=== PATIENT | male | born 1950 | race Caucasian/White ===

== ENCOUNTER 2022-01-01 09:40 | Observation (INO) | payer OTHER, SELFPAY ==
[2022-01-01] VITALS (44 sets, daily range): BP systolic 96–129; BP diastolic 52–80; PULSE 68–107; RESP 14–26; TEMP 35.4–36.8; O2SAT 92–100; BMI 25.1
--- NOTE | 2022-01-01 09:56 | ECG_ITS ---
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 Measurements Intervals [place] Rate: 82 P: 37 ID: [id number] QRS: -23 QRSD: 93 T: -38 QT: 399 QTc: 467 Interpretive Statements SINUS RHYTHM POSSIBLE LEFT ATRIAL ENLARGEMENT [-0.1mV P-WAVE IN V1/V2] ANTEROSEPTAL MYOCARDIAL INFARCTION , PROBABLY RECENT [40+ ms Q WAVE IN V1-V4] ACUTE LA No previous ECG available for comparison Electronically Signed On 01-01-2022 16:34:48 CDT by Cortney Deutsch M.D. [id number]
[2022-01-01 10:01] LABS: Basophils % 0.2 %; Hematocrit 43.8 % (42.0-52.0); Hemoglobin 14.6 g/dL (11.7-16.6); Lymphocytes # 0.7 10^3/uL (0.8-4.8); Lymphocytes % 4.6 %; Mean Corpuscular HGB Conc 33.3 g/dL (30.0-36.0); Mean Corpuscular Hemoglobin 31.3 pg (28.0-34.0); Mean Corpuscular Volume 93.8 fl (80-94); Mean Platelet Volume 11.1 fL (7.4-10.4); Monocytes % 6.9 %; Neutrophils # 13.13 10^3/uL (1.8-7.7); Neutrophils % 87.7 %; Nucleated Red Blood Cells % 0 %; Platelet Count 209 10^3/cmm (130-400); Red Blood Count 4.67 10^6/uL (4.1-5.3); Red Cell Distribution Width 13.2 % (12.1-15.1)
--- NOTE | 2022-01-01 10:02 | ED_ITS ---
HPI - General Adult General: Chief complaint: General Medical Stated complaint: hypothermia Time Seen by Provider: 01/01/22 09:46 History of Present Illness: 71-year-old male presenting today with concerns of hypothermia. Patient notes he was out in the [place] walking. He likes to walk with his dogs. He was feeling well and otherwise normal. He notes he fell asleep in the [place]. Woke up extremely cold. Somebody had called EMS on him which were seeking him in the [place]. And found him. Patient with a p.o. temperature in the 80s. However rectal temperature of 95. He denies chest pain or shortness of breath. He notes a history of prior stroke. For which she has residual left facial droop. He otherwise denies a full review of systems. Noting he feels better since being warmed. Review of Systems General: Reports: 10 or more systems reviewed and unremarkable except in HPI and below Physical Exam Const: COMMON NORMALS: no acute distress, patient oriented x3 and alert G ENERAL APPEARANCE: cooperative ORIENTATION/CONSCIOUSNESS: Yes awake, Yes oriented to person, Yes oriented to place and Yes oriented to time HENMT: COMMON NORMALS: normocephalic, atraumatic, external ears normal, Normal external nose present and moist oral mucous membranes HEAD & SCALP: normal to inspection, normocephalic and atraumatic NOSE: Normal external nose present GENERAL EAR: hearing grossly impaired EXTERNAL EAR: Yes external ears normal Eye: COMMON NORMALS: Equal, round and reactive pupils present, EOMs intact bilaterally, conjunctivae normal and no scleral icterus GENERAL EYE: appearance normal, both eyes and all related structures EYELID: eyelids normal CONJUNCTIVA: Yes conjunctivae normal SCLERA: sclerae normal PUPIL: Yes Equal, round and reactive pupils present Neck/C-Spine: COMMON NORMALS: full ROM, supple and no JVD GENERAL: Yes normal visual inspection Lymph: LYMPHATIC: no lymphadenopathy noted and no lymphedema noted Chest: COMMONS NORMALS: normal inspection of the chest Resp: COMMON NORMALS: normal respiratory effort, No retractions and No use of accessory muscles Cardio: COMMON NORMALS: no JVD, regular rate and regular rhythm RATE: regular rate RHYTHM: regular rhythm GI: COMMON NORMALS: Normal to inspection, nondistended, normoactive bowel sounds present : COMMON NORMALS: Yes no CVA tenderness BLADDER/KIDNEY EXAM: Yes no CVA tenderness Back/Pelvis: COMMON NORMALS: no CVA tenderness and thoracic and lumbar spine normal to inspection Extremity: COMMON NORMALS: normal to inspection, full ROM and capillary refill normal GENERAL: Yes normal exam except as noted Neuro: COMMON NORMALS: patient oriented x3, CN's II-XII intact bilaterally, moves all extremities, no focal motor deficits, no sensory deficits noted and gait normal SENSORIUM/ORIENTATION: Yes alert, Yes oriented to person, Yes oriented to place and Yes oriented to time Psych: COMMON NORMALS: mental status grossly normal, Normal thought process present, cooperative and normal affect THOUGHT PROCESS: Normal thought proce ss present Skin: COMMON NORMALS: no rashes or lesions noted and no wounds GENERAL SKIN EXAM: no rashes or lesions noted Course Vital Signs: Vital signs: Vital Signs Temperature 96.5 F L 01/01/22 10:41 Pulse Rate 86 01/01/22 10:50 Respiratory Rate 14 01/01/22 10:50 Blood Pressure 122/62 01/01/22 10:50 Pulse Oximetry 100 01/01/22 10:50 Oxygen Delivery Me thod 01/01/22 09:46 Oxygen Flow Rate 3 01/01/22 09:46 [facility] - General Adult Medical Decision Making 71-year-old male presenting today with concerns for hypothermia. Rectal temperature of 95.5. Patient rewarmed to 98.6. Labs with slight leukocytosis otherwise within normal limits. Vitals within normal limits. CMP with AST to ALT ratio suggestive of alcoholism. CK is significantly elevated. Also with renal insufficiency. Will admit to the hospital for likely rhabdomyolysis from shivering. Patient bolused normal saline. Hospitalist requesting drug screen as well as blood alcohol. Patient admitted in stable condition. Lab Data : 01/01/22 09:50 01/01/22 09:50 Laboratory Results WBC 15.0 10^3/uL (4.0-10.0) H 01/01/22 09:50 RBC 4.67 10^6/uL (4.1-5.3) 01/01/22 09:50 Hgb 14.6 g/dL (11.7-16.6) 01/01/22 09:50 Hct 43.8 % (42.0-52.0) 01/01/22 09:50 MCV 93.8 fl (80-94) 01/01/22 09:50 MCH 31.3 pg (28.0-34.0) 01/01/22 09:50 MCHC 33.3 g/dL (30.0-36.0) 01/01/22 09:50 RDW 13.2 % (12.1-15.1) 01/01/22 09:50 Plt Count 209 10^3/cmm (130-400) 01/01/22 09:50 MPV 11.1 fL (7.4-10.4) H 01/01/22 09:50 Neut % (Auto) 87.7 % 01/01/22 09:50 Lymph % (Auto) 4.6 % 01/01/22 09:50 Holt % (Auto) 6.9 % 01/01/22 09:50 Eos % (Auto) 0.0 % 01/01/22 09:50 Baso % (Auto) 0.2 % 01/01/22 09:50 Neut # (Auto) 13.13 10^3/uL (1.8-7.7) H 01/01/22 09:50 Lymph # (Auto) 0.7 10^3/uL (0.8-4.8) L 01/01/22 09:50 Holt # (Auto) 1.0 10^3/uL (0.2-0.9) H 01/01/22 09:50 Eos # (Auto) 0.0 10^3/uL (0.0-0.8) 01/01/22 09:50 Baso # (Auto) 0.0 10^3/uL (0.0-0.1) 01/01/22 09:50 Nucleated RBC % (auto) 0 % 01/01/22 09:50 Nucleated RBCs # 0.0 /100WBC 01/01/22 09:50 Sodium 136 mmol/L (136-145) 01/01/22 09:50 Potassium 4.6 mmol/L (3.5-5.1) 01/01/22 09:50 Chloride 100 mmol/L (98-107) 01/01/22 09:50 Carbon Dioxide 21 mmol/L (22-29) L 01/01/22 09:50 Anion Gap 19.6 (5-19) H 01/01/22 09:50 BUN 54 mg/dL (8-23) H 01/01/22 09:50 Creatinine 1.3 mg/dL (0.7-1.2) H 01/01/22 09:50 GFR Calculation Not Reportable 01/01/22 09:50 Glucose 88 mg/dL (65-115) 01/01/22 09:50 Calculated Osmolality 296 mOsm/kg (285-295) H 01/01/22 09:50 Calcium 9.0 mg/dL (8.5-10.5) 01/01/22 09:50 Total Bilirubin 1.6 mg/dL (0.15-1.2) H 01/01/22 09:50 AST 170 U/L (0-40) H 01/01/22 09:50 ALT 63 U/L (0-41) H 01/01/22 09:50 Alkaline Phosphatase 65 U/L (40-130) 01/01/22 09:50 Creatine Kinase 6487 U/L (39-308) H* 01/01/22 09:50 Total Protein 7.4 g/dL (6.6-8.7) 01/01/22 09:50 Albumin 4.2 g/dL (3.5-5.2) 01/01/22 09:50 Globulin 3.2 g/dL (1.3-4.6) 01/01/22 09:50 Discharge Plan Discharge Patient Disposition: Admitted As Inpatient Clinical Impression: Hypothermia, Rhabdomyolysis, Acute kidney injury, Hepatic insufficiency Condition: Stable Prescriptions: No Action atorvastatin 80 mg Tablet 80 mg PO QPM carvedilol 6.25 mg Tablet 3.125 mg PO BID Aspir-81 81 mg Tablet,Delayed Release (Dr/Ec) 81 mg PO DAILY spironolactone 25 mg Tablet 12.5 mg PO DAILY warfarin 2 mg Tablet See Rx Instructions .ROUTE .COMPLEX Rx Instructions: take 3 tabs (6mg) po on tuesday and tuesday and take 2 tabs (4mg) all other days or as directed losartan 25 mg Tablet 12.5 mg PO QPM Vitamin D2 1,250 mcg (50,000 unit) Capsule 50,000 unit PO Q7D Rx Instructions: on sat for 4 weeks Referrals: Rema Moreno MD [Primary Care Provider] - Patient Instructions: Opioid Safety, Pain Management Coding Level of Care Code ED Commercial Loan Underwriter for Chg Fwd Exam Comprehensive
[2022-01-01 10:38] LABS: Alanine Aminotransferase 63 U/L (0-41); Albumin Level 4.2 g/dL (3.5-5.2); Alkaline Phosphatase 65 U/L (40-130); Anion Gap 19.6 (5-19); Aspartate Amino Transferase 170 U/L (0-40); Blood Urea Nitrogen 54 mg/dL (8-23); Carbon Dioxide 21 mmol/L (22-29); Chloride 100 mmol/L (98-107); Globulin 3.2 g/dL (1.3-4.6); Glucose 88 mg/dL (65-115); Osmolality Calculated 296 mOsm/kg (285-295); Potassium 4.6 mmol/L (3.5-5.1); Sodium 136 mmol/L (136-145); Total Bilirubin 1.6 mg/dL (0.15-1.2); Total Protein 7.4 g/dL (6.6-8.7)
[2022-01-01 10:55] LABS: Creatine Phosphokinase 6487 U/L (39-308)
--- NOTE | 2022-01-01 11:11 | PC.PHAR ---
pt and pts family unable to verify medications-medications entered are meds that are on the [place]
[2022-01-01] MEDS: sodium chloride 0.9% 1,000 ML 999 ML IV (11:12)
[2022-01-01 11:42] LABS: Alcohol Level < 10 mg/dL (0-10)
--- NOTE | 2022-01-01 12:12 | PM.HP ---
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 Patient was seen on [facility], patient is stating that he woke up around 5:30 AM before done he was very thirsty, there were 20 friends at his house and they were all waiting To go to the bathroom so he decided to go out and void urine in the [place], then a cold breeze came and he felt extremely comfortable and then slept for a while, and then he started experiencing chest tightness which was constant until he was seen in the ER, when I asked him what made it better he said water, patient also made statement like when he woke up there was a water stream running through the kitchen but he decided to drink water from the tap. And then he started complaining that his family members were sleeping beside him but they did not help him to get a bottle of water, patient is also stating that he found a friend in the [place] When I talked to the family daughter stating that last time he was so normal was on Tuesday when she visited him, he lives alone in his own home, he is very independent, he loves to soriano and golf with his dogs, on Tuesday his friend checked on him he was not at home his front door was unlocked and all the lights were on, his phone was inside which he put on charging, he was not at home, on Tuesday family reported to the police department that he went missing, and then the whole family started searching for him in the [facility], he was recovered from the [facility] by a marketing communications coordinator on Tuesday morning, patient was very talkative he was telling all kind of different stories he kept saying he is very thirsty and dehydrated In the ER he has been diagnosed with delusional disorder secondary to dehydration he also has rhabdomyolysis, ASHELY abnormal transaminases I have requested CT head he did not have any stroke related changes his strength is good he is awake alert oriented to time place and person Tangential thoughts According to the family he is 90% back to baseline but he is making some statements which are not true Patient is stating that he he gets tick bites all the time Review of Systems Const: Denies: fever(s) Eyes: Denies: change in vision ENMT: Denies: throat pain Card: Reports: chest pain Resp: Denies: dyspnea GI: Denies: abdominal pain : Denies: flank pain Musc: Denies: neck pain Skin/Breast: Denies: rash Neuro: Reports: behavioral changes; Denies: headache(s) Psych: Denies: anxiety Endo: Denies: polyuria William/Lymph: Denies: easy bruising All/Imm: Denies: urticaria Medications/Allergies Home Medications Medication Instructions Recorded Confirmed Last Taken Type aspirin 81 mg tablet,delayed 81 mg PO DAILY 01/01/22 01/01/22 Unknown History release atorvastatin 80 mg tablet 80 mg PO QPM 01/01/22 01/01/22 Unknown History carvedilol 6.25 mg tablet 3.125 mg PO BID 01/01/22 01/01/22 Unknown History ergocalciferol (vitamin D2) 1,250 50,000 unit PO Q7D 01/01/22 01/01/22 Unknown History mcg (50,000 unit) capsule (Vitamin D2) losartan 25 mg tablet 12.5 mg PO QPM 01/01/22 01/01/22 Unknown History spironolactone 25 mg tablet 12.5 mg PO DAILY 01/01/22 01/01/22 Unknown History warfarin 2 mg tablet See Rx Instructions .Route .COMPLEX 01/01/22 01/01/22 Unknown History Allergies Allergy/AdvReac Type Severity Reaction Status Date / Time No Known Allergies Allergy Verified 01/01/22 11:11 PFSH Acute PFSH: Medical History (Updated 01/01/22 @ 17:23 by Grant Fink MD) CVA (cerebral vascular accident) In July he was at [facility] status post embolectomy as per the family because posterior circulation Family History (Updated 01/01/22 @ 17:24 by Grant Fink MD) Other Stroke Social History (Updated 01/01/22 @ 17:24 by Grant Fink MD) Smoking and tobacco status: former smoker Alcohol intake: current Alcohol intake frequency: holidays/special occasions only Alcohol type: beer Substance/Drug Use: never Lives independently: Yes Housing: House Vitals/I&O/Wt Last Vital Signs Temp 96.5 F L 01/01/22 10:41 Pulse 89 01/01/22 12:00 Resp 21 H 01/01/22 12:00 BP 108/62 01/01/22 12:00 Pulse Ox 98 01/01/22 12:00 O2 Del Method 01/01/22 09:46 O2 Flow Rate 3 01/01/22 09:46 Physical Exam Narrative: NIH 0 Awake and alert Skin is flushed Signs of dehydration Awake and alert S1, S2 sinus tachycardia Hemodynamically stable Currently on room air Family at the bedside Nonfocal neuro exam Pleasant and cooperative Attention span is good he does have tangential thoughts Data : 01/01/22 09:50 01/01/22 09:50 A&P Assessment and plan (1) Hypothermia: (2) Rhabdomyolysis: (3) Acute kidney injury: (4) Hepatic insufficiency: (5) Delusional disorder: Plan Acute delusional disorder Most likely related to dehydration Check drug screen Check CT head without contrast He is afebrile Look for tick bites I will start him on ceftriaxone Check UA Suspicion for meningoencephalitis is low ASHELY related to dehydration anticipating treatment with IV fluid hydration Concern for tick bite related confusion I will keep him on ceftriaxone for now we will asked nurses to do a full body exam Abnormal transaminases, etiology is unknown patient does not look fluid overloaded Alcohol level undetectable Essential hypertension at home he takes losartan and spironolactone which I would hold for now and continue Coreg Recent CVA in July status post catheter directed thrombectomy I will continue his aspirin hold atorvastatin because of abnormal transaminases Patient is full code I will keep him on regular diet At baseline as per the family patient is very talkative and pleasant and loves to soriano and go out with his dogs Family meeting conducted Attestations Medical Necessity Statement*: Less than 2 midnights anticipated for management of delusional disorder, dehydration Time Spent in Patient Care: 45 Coding Level of Care Code Acute Sap Hana Architect for g Fwd Diagnoses Hypothermia T68.XXXA Rhabdomyolysis M62.82 Acute kidney injury N17.9 Hepatic insufficiency K72.90 Delusional disorder F22
--- NOTE | 2022-01-01 13:07 | PC.NURSE ---
PT HAS SMALL AMOUNT OF BRIGHT RED BLOOD FROM RECTUM. DR WOODWARD NOTIFIED NO NEW VERBAL ORDERS AT THIS TIME. RECEIVING NURSE NOTIFIED PRIOR TO PT XFER.
[2022-01-01 13:24] LABS: Amphetamines Screen Urine Negative (Negative); Barbiturates Screen Urine Negative (Negative); Benzodiazepines Screen Urine Negative (Negative); Cocaine Screen Urine Negative (Negative); Opiate Screen Urine Negative (Negative); PCP Screen Urine Negative (Negative); THC Screen Urine Negative (Negative)
[2022-01-01 13:26] LABS: Procalcitonin 0.07 ng/mL (0-0.5)
[2022-01-01] MEDS: heparin 5,000 unit/mL INJ 1 mL 5000 UNIT SUBCUT (15:33)
[2022-01-01] MEDS: sodium chloride 0.9% 1,000 ML 75 ML IV (15:34)
--- NOTE | 2022-01-01 16:18 | CTR_ITS ---
PROCEDURE INFORMATION: Exam: CT Head Without Contrast Exam date and time: 01/01/2022 5:44 PM Age: 71 years old Clinical indication: Altered mental status/memory loss; Additional info: CVA TECHNIQUE: Imaging protocol: Computed tomography of the head without contrast. Radiation optimization: All CT scans at this facility use at least one of these dose optimization techniques: automated exposure control; mA and/or kV adjustment per patient size (includes targeted exams where dose is matched to clinical indication); or iterative reconstruction. COMPARISON: No relevant prior studies available. RADIATION DOSE METRICS: Total DLP (mGy-cm): 1262.84 FINDINGS: Brain: No hemorrhage. No edema. Moderate diffuse cerebral atrophy. Broad region of encephalomalacia corresponding to prior infarct in the right frontal/parietal/temporal lobes. Additional small focal area of encephalomalacia in the left occipital lobe also corresponds to old infarct. No mass effect. Cerebral ventricles: No ventriculomegaly. Paranasal sinuses: Visualized sinuses are unremarkable. No fluid levels. Mastoid air cells: Visualized mastoid air cells are well aerated. Bones/joints: Unremarkable. No acute fracture. Soft tissues: Unremarkable. CT/CT head wo con* [id number] IMPRESSION: 1. No acute intracranial abnormality. 2. Old infarcts noted within the right frontal/parietal/temporal lobes and left occipital lobe.
--- NOTE | 2022-01-01 16:22 | PC.NURSE ---
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 Patient does have hx of previous stroke. Patient appears to be slightly confused but told me that his left side was affected in previous CVA.
[2022-01-01 16:48] LABS: Estmated Average Glucose 114; Hemoglobin A1C 5.6 % (4.0-6.0)
[2022-01-01 17:11] LABS: Glucose Point of Care 107 mg/dL (70-110)
[2022-01-01 17:38] LABS: Thyroid Stimulating Hormone 1.14 uIU/mL (0.27-4.20); Vitamin B12 359 pg/mL (232-1245)
[2022-01-01] MEDS: sodium chloride 0.9% 1,000 ML 100 ML IV ×2 (18:25→20:24)
[2022-01-01] MEDS: carvedilol 3.125 mg Tablet PO (18:26)
[2022-01-01 19:17] LABS: INR 4.53 (0.8-1.2)
[2022-01-01 19:18] LABS: Fibrinogen 433 mg/dL (174-498); Partial Thromboplastin Time 47.5 SECONDS (23.9-36.7)
[2022-01-01 19:20] LABS: D Dimer 0.47 ug/mIFEU (0-0.59)
[2022-01-01 20:21] LABS: Add Urine Microscopic? YES; Bilirubin Urine Neg (Negative); Blood Urine 2+ (Negative); Glucose Urine UA Norm (Normal); Ketones Urine 2+ (Negative); Leukocyte Esterase Urine Negative (Negative); Nitrate Urine Negative (Negative); Protein Urine Trace (Negative); Urine Appearance Clear (CLEAR); Urine Color Yellow (Yellow); Urobilinogen Urine Norm (Negative); pH Urine 5 (5-7)
[2022-01-01 20:22] LABS: Add Urine Culture? No; RBC Urine 0-4 /hpf (0-2); Squamous Epithelial Cell Urine 0-4 /hpf (0-5)
[2022-01-01] MEDS: quetiapine 25 mg Tablet PO (20:24)
--- NOTE | 2022-01-01 20:27 | PC.NURSE ---
Patient refusing gown at this time.
[2022-01-01 21:49] LABS: Glucose Point of Care 132 mg/dL (70-110)
[2022-01-02] VITALS (7 sets, daily range): BP systolic 102–117; BP diastolic 62–72; PULSE 73–84; RESP 15–20; TEMP 36.4–36.9; O2SAT 20–99
[2022-01-02 04:30] LABS: Basophils % 0.3 %; Eosinophils # 0.1 10^3/uL (0.0-0.8); Eosinophils % 1.1 %; Hemoglobin 13.5 g/dL (11.7-16.6); Lymphocytes # 1.1 10^3/uL (0.8-4.8); Mean Corpuscular HGB Conc 32.9 g/dL (30.0-36.0); Mean Corpuscular Hemoglobin 30.8 pg (28.0-34.0); Mean Corpuscular Volume 93.6 fl (80-94); Mean Platelet Volume 10.7 fL (7.4-10.4); Monocytes % 10.6 %; Neutrophils # 7.08 10^3/uL (1.8-7.7); Neutrophils % 75.7 %; Nucleated Red Blood Cells % 0 %; Platelet Count 158 10^3/cmm (130-400); Red Blood Count 4.38 10^6/uL (4.1-5.3); Red Cell Distribution Width 13.2 % (12.1-15.1); White Blood Count 9.4 10^3/uL (4.0-10.0)
[2022-01-02 04:41] LABS: INR 3.51 (0.8-1.2)
[2022-01-02 04:53] LABS: Alanine Aminotransferase 52 U/L (0-41); Albumin Level 3.5 g/dL (3.5-5.2); Alkaline Phosphatase 60 U/L (40-130); Anion Gap 8.8 (5-19); Aspartate Amino Transferase 113 U/L (0-40); Blood Urea Nitrogen 42 mg/dL (8-23); C Reactive Protein 31.5 mg/L (0.0-4.9); Calcium 8.5 mg/dL (8.5-10.5); Carbon Dioxide 26 mmol/L (22-29); Chloride 101 mmol/L (98-107); Globulin 2.8 g/dL (1.3-4.6); Glucose 108 mg/dL (65-115); Magnesium 2.4 mg/dL (1.7-2.3); Osmolality Calculated 285 mOsm/kg (285-295); Phosphorus 2.4 mg/dL (2.5-4.5); Potassium 3.8 mmol/L (3.5-5.1); Sodium 132 mmol/L (136-145); Total Bilirubin 1.3 mg/dL (0.15-1.2); Total Protein 6.3 g/dL (6.6-8.7)
[2022-01-02 05:07] LABS: Creatine Phosphokinase 2909 U/L (39-308)
[2022-01-02 05:25] LABS: CKMB 22.4 ng/mL (0-10.4)
[2022-01-02 05:29] LABS: CKMB Relative Index 0.7 % (0.0-5.3)
[2022-01-02 06:31] LABS: Glucose Point of Care 91 mg/dL (70-110)
[2022-01-02] MEDS: cefTRIAXone 1,000 MG in sodium chloride 0.9% (plus) 50 ML 100 MG IV (08:21)
[2022-01-02] MEDS: sennosides-docusate Tablet 1 TAB PO (08:22)
[2022-01-02] MEDS: folic acid 1 mg Tablet PO (08:22)
[2022-01-02] MEDS: thiamine 100 mg Tablet PO (08:22)
[2022-01-02] MEDS: carvedilol 3.125 mg Tablet PO ×2 (08:22→18:17)
[2022-01-02] MEDS: aspirin 81 mg EC Tablet PO (08:22)
--- NOTE | 2022-01-02 10:47 | P.PN_ITS ---
Subjective Subjective: Patient is doing well No overnight events Mathis catheter draining concentrated urine I have asked nurse to increase the rate of IV fluids CPK improving transaminases improving CT head unremarkable no Tick bites Vitals/I&O/Wt Last Vital Signs Temp 97.8 F 01/02/22 08:00 Pulse 73 01/02/22 09:29 Resp 16 01/02/22 09:29 BP 114/72 01/02/22 08:00 Pulse Ox 99 01/02/22 09:29 O2 Del Method 01/02/22 09:29 O2 Flow Rate 3 01/01/22 09:46 01/01/22 01/02/22 01/02/22 22:59 06:59 14:59 Intake Total 652.083 / 1652.083 300 / 1952.083 170 / 170 Output Total 800 / 800 Balance 652.083 / 1652.083 -500 / 1152.083 170 / 170 Weight last 48 hrs Weight 81.601 kg Weight 77.111 kg Physical Exam Narrative: Patient is awake and alert Nonfocal neuro exam No signs of confusion or delirium No signs of focal deficit Looks well-hydrated Hemodynamically stable Mathis cath draining concentrated urine Abdomen soft Urinary Catheter Management: Amthis: Cath Placed During This Visit: yes Reason for Continuing Indwelling Catheter: Other Urinary Catheter Date of Insertion: 01/01/22 Urinary Catheter Time of Insertion: 19:05 Data : 01/02/22 04:20 01/02/22 04:20 A&P Assessment and plan (1) Delusional disorder: (2) Hypothermia: (3) Rhabdomyolysis: (4) Acute kidney injury: (5) Hepatic insufficiency: Plan Delusional disorder improved Hypothermia improved Abnormal transaminases improving ASHELY: Resolved with IV fluid hydration Rhabdomyolysis: CPK improving with IV fluids No signs of stroke CT head unremarkable Panel has been sent Continue ceftriaxone No signs of UTI Plan to discharge him tomorrow if clinically stable Attestations Medical Necessity Statement*: Discharge tomorrow Time Spent in Patient Care: 40 Coding Level of Care Code Acute Airplane Flight Attendant Supervisor for g Fwd Diagnoses Delusional disorder F22 Hypothermia T68.XXXA Rhabdomyolysis M62.82 Acute kidney injury N17.9 Hepatic insufficiency K72.90
[2022-01-02 11:09] LABS: Glucose Point of Care 119 mg/dL (70-110)
[2022-01-02] MEDS: potassium chloride ER 20 mEq Tablet 40 MEQ PO (11:38)
[2022-01-02] MEDS: sodium chloride 0.9% 1,000 ML 100 ML IV ×2 (11:42→23:27)
[2022-01-02 17:17] LABS: Glucose Point of Care 95 mg/dL (70-110)
[2022-01-02] MEDS: phosphorus 250 mg Tablet PO (18:17)
[2022-01-02] MEDS: quetiapine 25 mg Tablet PO (20:27)
[2022-01-02 21:17] LABS: Glucose Point of Care 119 mg/dL (70-110)
[2022-01-03 04:00] VITALS: BP 98/61; PULSE 78; RESP 16; TEMP 37; O2SAT 95
[2022-01-03 06:10] LABS: Basophils % 0.4 %; Eosinophils # 0.2 10^3/uL (0.0-0.8); Eosinophils % 2.5 %; Hematocrit 35.3 % (42.0-52.0); Hemoglobin 11.5 g/dL (11.7-16.6); Lymphocytes # 1.4 10^3/uL (0.8-4.8); Lymphocytes % 20.2 %; Mean Corpuscular HGB Conc 32.6 g/dL (30.0-36.0); Mean Corpuscular Hemoglobin 30.4 pg (28.0-34.0); Mean Corpuscular Volume 93.4 fl (80-94); Mean Platelet Volume 11.2 fL (7.4-10.4); Monocytes # 0.9 10^3/uL (0.2-0.9); Monocytes % 12.2 %; Neutrophils # 4.59 10^3/uL (1.8-7.7); Neutrophils % 64.4 %; Nucleated Red Blood Cells % 0 %; Platelet Count 143 10^3/cmm (130-400); Red Blood Count 3.78 10^6/uL (4.1-5.3); Red Cell Distribution Width 13.3 % (12.1-15.1); White Blood Count 7.1 10^3/uL (4.0-10.0)
[2022-01-03 06:19] LABS: INR 1.68 (0.8-1.2)
[2022-01-03 06:31] LABS: Glucose Point of Care 130 mg/dL (70-110)
[2022-01-03 06:49] LABS: Alanine Aminotransferase 38 U/L (0-41); Albumin Level 2.8 g/dL (3.5-5.2); Alkaline Phosphatase 43 U/L (40-130); Anion Gap 12.1 (5-19); Aspartate Amino Transferase 54 U/L (0-40); Blood Urea Nitrogen 20 mg/dL (8-23); Calcium 7.7 mg/dL (8.5-10.5); Carbon Dioxide 23 mmol/L (22-29); Chloride 106 mmol/L (98-107); Globulin 2.3 g/dL (1.3-4.6); Glucose 97 mg/dL (65-115); Osmolality Calculated 287 mOsm/kg (285-295); Potassium 4.1 mmol/L (3.5-5.1); Sodium 137 mmol/L (136-145); Total Bilirubin 0.7 mg/dL (0.15-1.2); Total Protein 5.1 g/dL (6.6-8.7)
[2022-01-03 07:07] LABS: Creatine Phosphokinase 968 U/L (39-308)
[2022-01-03 07:21] VITALS: BP 101/64; PULSE 82; RESP 16; TEMP 36.9; O2SAT 97
[2022-01-03 07:40] VITALS: PULSE 79; RESP 18; O2SAT 92
--- NOTE | 2022-01-03 07:44 | PM.DCS ---
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 Patient was seen on [facility], patient is stating that he woke up around 5:30 AM before done he was very thirsty, there were 20 friends at his house and they were all waiting To go to the bathroom so he decided to go out and void urine in the [place], then a cold breeze came and he felt extremely comfortable and then slept for a while, and then he started experiencing chest tightness which was constant until he was seen in the ER, when I asked him what made it better he said water, patient also made statement like when he woke up there was a water stream running through the kitchen but he decided to drink water from the tap.? And then he started complaining that his family members were sleeping beside him but they did not help him to get a bottle of water, patient is also stating that he found a friend in the [place] When I talked to the family daughter stating that last time he was so normal was on Tuesday when she visited him, he lives alone in his own home, he is very independent, he loves to soriano and golf with his dogs, on Tuesday his friend checked on him he was not at home his front door was unlocked and all the lights were on, his phone was inside which he put on charging, he was not at home, on Tuesday family reported to the police department that he went missing, and then the whole family started searching for him in the [place], he was recovered from the [place] by a extractions technician on Tuesday morning, patient was very talkative he was telling all kind of different stories he kept saying he is very thirsty and dehydrated In the ER he has been diagnosed with delusional disorder secondary to dehydration he also has rhabdomyolysis, ASHELY abnormal transaminases I have requested CT head he did not have any stroke related changes his strength is good he is awake alert oriented to time place and person Tangential thoughts According to the family he is 90% back to baseline but he is making some statements which are not true Patient is stating that he he gets tick bites? all the time Hospital Course Hospital Course 68-year-old male who was admitted to the hospital after he was found in the [facility], he was missing for about 5 days, he was escorted to the hospital by the police department, patient was diagnosed with rhabdomyolysis, ASHELY, severe dehydration, CT head showed recent CVA related right frontotemporoparietal occipital lobe changes, no signs of UTI, no ticks were identified on the skin he was given ceftriaxone empirically, his rhabdomyolysis and ASHELY improved with IV fluid hydration. Patient was alert and oriented even at the time of admission however his thoughts were tangential, no organic causes were identified other than severe related encephalomalacia. He is awake and alert pleasant to communicate Did well with PT, at the time of discharge I will continue his home medications, the only medication I plan to add his olanzapine for his delusional disorder, I have asked his daughters to follow-up with PCP he might need neurology and psychiatry outpatient referrals. Physical Exam Narrative: Patient is awake and alert Nonfocal neuro exam Pleasant during my evaluation No active weakness Nonfocal neuro exam Currently doing well on room air Hemodynamically stable Mathis catheter will be removed Signs of dehydration improved Urinary Catheter Management: Mathis: Cath Placed During This Visit: yes Reason for Continuing Indwelling Catheter: Acute Urinary Retention or Obstruction Urinary Catheter Date of Insertion: 01/01/22 Urinary Catheter Time of Insertion: 19:05 Discharge Data Studies Completed and Pending Completed Studies During Hospitalization Category Date Time Status CT head wo con* [id number] Routine Cat Scan 01/01/22 16:18 Completed Pending at discharge Category Date Time Status Prothrombin Time INR AM LABS Lab 01/04/22 04:00 Ordered Tick Panel Routine Lab 01/01/22 18:30 Received Radiology Impressions Head CT 01/01/22 16:18 IMPRESSION: 1. No acute intracranial abnormality. 2. Old infarcts noted within the right frontal/parietal/temporal lobes and left occipital lobe. Laboratory Results WBC 7.1 10^3/uL (4.0-10.0) 01/03/22 05:46 RBC 3.78 10^6/uL (4.1-5.3) L 01/03/22 05:46 Hgb 11.5 g/dL (11.7-16.6) L 01/03/22 05:46 Hct 35.3 % (42.0-52.0) L 01/03/22 05:46 MCV 93.4 fl (80-94) 01/03/22 05:46 MCH 30.4 pg (28.0-34.0) 01/03/22 05:46 MCHC 32.6 g/dL (30.0-36.0) 01/03/22 05:46 RDW 13.3 % (12.1-15.1) 01/03/22 05:46 Plt Count 143 10^3/cmm (130-400) 01/03/22 05:46 MPV 11.2 fL (7.4-10.4) H 01/03/22 05:46 Neut % (Auto) 64.4 % 01/03/22 05:46 Lymph % (Auto) 20.2 % 01/03/22 05:46 [place] % (Auto) 12.2 % 01/03/22 05:46 Eos % (Auto) 2.5 % 01/03/22 05:46 Baso % (Auto) 0.4 % 01/03/22 05:46 Neut # (Auto) 4.59 10^3/uL (1.8-7.7) 01/03/22 05:46 Lymph # (Auto) 1.4 10^3/uL (0.8-4.8) 01/03/22 05:46 [place] # (Auto) 0.9 10^3/uL (0.2-0.9) 01/03/22 05:46 Eos # (Auto) 0.2 10^3/uL (0.0-0.8) 01/03/22 05:46 Baso # (Auto) 0.0 10^3/uL (0.0-0.1) 01/03/22 05:46 Nucleated RBC % (auto) 0 % 01/03/22 05:46 Nucleated RBCs # 0.0 /100WBC 01/03/22 05:46 PT 20.10 SECONDS (12.1-14.9) H D 01/03/22 05:46 INR 1.68 (0.8-1.2) H 01/03/22 05:46 APTT 47.5 SECONDS (23.9-36.7) H 01/01/22 18:30 Fibrinogen 433 mg/dL (174-498) 01/01/22 18:30 Fibrin Degrad Products Pos, 10-40 ug/mL (NEG) H 01/01/22 18:30 D-Dimer 0.47 ug/mIFEU (0-0.59) 01/01/22 18:30 Sodium 137 mmol/L (136-145) 01/03/22 05:46 Potassium 4.1 mmol/L (3.5-5.1) 01/03/22 05:46 Chloride 106 mmol/L (98-107) 01/03/22 05:46 Carbon Dioxide 23 mmol/L (22-29) 01/03/22 05:46 Anion Gap 12.1 (5-19) 01/03/22 05:46 BUN 20 mg/dL (8-23) 01/03/22 05:46 Creatinine 0.8 mg/dL (0.7-1.2) 01/03/22 05:46 GFR Calculation Not Reportable 01/03/22 05:46 Glucose 97 mg/dL (65-115) 01/03/22 05:46 POC Glucose 130 mg/dL (70-110) H 01/03/22 06:28 Estimat Average Glucose 114 01/01/22 09:50 Hemoglobin A1c 5.6 % (4.0-6.0) 01/01/22 09:50 Calculated Osmolality 287 mOsm/kg (285-295) 01/03/22 05:46 Calcium 7.7 mg/dL (8.5-10.5) L 01/03/22 05:46 Phosphorus 2.4 mg/dL (2.5-4.5) L 01/02/22 04:20 Magnesium 2.4 mg/dL (1.7-2.3) H 01/02/22 04:20 Total Bilirubin 0.7 mg/dL (0.15-1.2) 01/03/22 05:46 AST 54 U/L (0-40) H 01/03/22 05:46 ALT 38 U/L (0-41) 01/03/22 05:46 Alkaline Phosphatase 43 U/L (40-130) 01/03/22 05:46 Creatine Kinase 968 U/L (39-308) H* 01/03/22 05:46 CK-MB (CK-2) 22.4 ng/mL (0-10.4) H 01/02/22 04:20 CK-MB (CK-2) Rel Index 0.7 % (0.0-5.3) 01/02/22 04:20 C-Reactive Protein 31.5 mg/L (0.0-4.9) H 01/02/22 04:20 Total Protein 5.1 g/dL (6.6-8.7) L 01/03/22 05:46 Albumin 2.8 g/dL (3.5-5.2) L 01/03/22 05:46 Globulin 2.3 g/dL (1.3-4.6) 01/03/22 05:46 Vitamin B12 359 pg/mL (232-1245) 01/01/22 09:50 Procalcitonin 0.07 ng/mL (0-0.5) 01/01/22 10:10 TSH 1.14 uIU/mL (0.27-4.20) 01/01/22 09:50 Urine Color Yellow (Yellow) 01/01/22 20:00 Urine Appearance Clear (CLEAR) 01/01/22 20:00 Urine pH 5 (5-7) 01/01/22 20:00 Ur Specific [place] 1.020 (1.005-1.030) 01/01/22 20:00 Urine Protein Trace (Negative) 01/01/22 20:00 Urine Glucose (UA) Norm (Normal) 01/01/22 20:00 Urine Ketones 2+ (Negative) H 01/01/22 20:00 Urine Blood 2+ (Negative) H 01/01/22 20:00 Urine Nitrate Negative (Negative) 01/01/22 20:00 Urine Bilirubin Neg (Negative) 01/01/22 20:00 Urine Urobilinogen Norm mg/dL (Negative) 01/01/22 20:00 Ur Leukocyte Esterase Negative (Negative) 01/01/22 20:00 Urine RBC 0-4 /hpf (0-2) H 01/01/22 20:00 Urine WBC None /hpf (0-5) 01/01/22 20:00 Ur Squamous Epith Cells 0-4 /hpf (0-5) H 01/01/22 20:00 Amorphous Sediment Not Reportable 01/01/22 20:00 Urine Bacteria None /hpf (NONE) 01/01/22 20:00 Urine Opiates Screen Negative ng/mL (Negative) 01/01/22 13:00 Ur Barbiturates Screen Negative ng/mL (Negative) 01/01/22 13:00 Ur Phencyclidine Scrn Negative ng/mL (Negative) 01/01/22 13:00 Ur Amphetamines Screen Negative ng/mL (Negative) 01/01/22 13:00 U Benzodiazepines Scrn Negative ng/mL (Negative) 01/01/22 13:00 Urine Cocaine Screen Negative ng/mL (Negative) 01/01/22 13:00 U Marijuana (THC) Screen Negative ng/mL (Negative) 01/01/22 13:00 Ethyl Alcohol < 10 mg/dL (0-10) 01/01/22 09:50 Vitals Last Vital Signs Temp 98.4 F 01/03/22 07:21 Pulse 79 01/03/22 07:40 Resp 18 01/03/22 07:40 BP 101/64 01/03/22 07:21 Pulse Ox 92 01/03/22 07:40 O2 Del Method 01/03/22 07:40 O2 Flow Rate 3 01/01/22 09:46 Discharge Plan Discharge Patient Disposition: Home Condition: Stable Prescriptions: New olanzapine 7.5 mg tablet 7.5 mg PO DAILY Qty: 60 0RF Continued atorvastatin 80 mg Tablet 80 mg PO QPM carvedilol 6.25 mg Tablet 3.125 mg PO BID aspirin 81 mg Tablet,Delayed Release (Dr/Ec) 81 mg PO DAILY warfarin 2 mg Tablet See Rx Instructions .ROUTE .COMPLEX Rx Instructions: take 3 tabs (6mg) po on tuesday and tuesday and take 2 tabs (4mg) all other days or as directed Vitamin D2 1,250 mcg (50,000 unit) Capsule 50,000 unit PO Q7D Rx Instructions: on sat for 4 weeks Discontinued spironolactone 25 mg Tablet 12.5 mg PO DAILY losartan 25 mg Tablet 12.5 mg PO QPM Discharge Orders: Discharge Order (Routine); Ordered 01/03/22 Ordered By: Grant Fink Referrals: Rema Moreno MD [Primary Care Provider] - 4-7 days Discharge Diet: Advance as tolerated Discharge Activity: Increase activity as tolerated Patient Instructions: Opioid Safety, Pain Management Discharge Attestations Time Spent in Discharge Care*: less than 30 min Quality Metrics Clinical Quality Measures [ No reported AMI, CVA or VTE this stay] Coding Level of Care Code Acute g FW DC note Diagnoses Delusional disorder F22 Hypothermia T68.XXXA Rhabdomyolysis M62.82 Acute kidney injury N17.9 Hepatic insufficiency K72.90
[2022-01-03 08:00] VITALS: PULSE 79; RESP 18
[2022-01-03] MEDS: cefTRIAXone 1,000 MG in sodium chloride 0.9% (plus) 50 ML 100 MG IV (08:17)
[2022-01-03] MEDS: folic acid 1 mg Tablet PO (08:17)
[2022-01-03] MEDS: sennosides-docusate Tablet 1 TAB PO (08:17)
[2022-01-03] MEDS: thiamine 100 mg Tablet PO (08:17)
[2022-01-03] MEDS: phosphorus 250 mg Tablet PO (08:17)
[2022-01-03] MEDS: aspirin 81 mg EC Tablet PO (08:17)
[2022-01-03] MEDS: sodium chloride 0.9% 1,000 ML 100 ML IV (08:24)
[2022-01-03] MEDS: carvedilol 3.125 mg Tablet PO (08:35)
--- NOTE | 2022-01-03 10:21 | PC.NURSE ---
PRESCRIPTIONS CALLED INTO [facility] BY THIS NURSE.
[2022-01-03 11:23] LABS: Glucose Point of Care 99 mg/dL (70-110)
[2022-01-03 11:27] VITALS: BP 102/62; PULSE 81; RESP 18; TEMP 36.8; O2SAT 95
[2022-01-05 14:34] LABS: Lyme AB Screen <0.90 index
[2022-01-07 16:03] LABS: RMSF IGG NOT DETECTED; RMSF IGM NOT DETECTED
[2022-01-07 21:48] LABS: E. Chaffeensis AB IGG <1:64; E. Chaffeensis AB IGM <1:20
== END 2022-01-03 15:28 | disposition home or self-care (01) ==
LOC: ER 11:19 → MEDSURG 16:22
PROVIDERS: Admitting Provider Internal Medicine; Emergency Provider Emergency Medicine; PCP Family Medicine; Visit Provider Internal Medicine
DX: F22 Delusional disorders (principal); T68.XXXA Hypothermia, initial encounter; M62.82 Rhabdomyolysis; N17.9 Acute kidney failure, unspecified; K72.90 Hepatic failure, unspecified without coma; Z86.73 Personal history of transient ischemic attack (TIA), and cerebral infarction without residual deficits; Z87.891 Personal history of nicotine dependence; E86.0 Dehydration
CPT/HCPCS: 36415; 36416; 51702; 70450; 80053; 80306; 80307; 81001; 82550; 82553; 82607; 82962; 83036; 83735; 84100; 84145; 84443; 85025; 85362; 85378; 85384; 85610; 85730; 86140; 86618; 86666; 86757; 93005; 96361; 96365; 96372; 97116; 97161; 99285; G0378; J0696; J1644; J7030

== ENCOUNTER 2022-04-15 16:26 | Emergency (ER) | payer OTHER, SELFPAY ==
[2022-04-15 16:37] VITALS: BP 138/88; PULSE 86; RESP 16; TEMP 36.9; O2SAT 97; BMI 28.9
--- NOTE | 2022-04-15 16:43 | XRR_ITS ---
PROCEDURE INFORMATION: Exam: XR Left Hip Exam date and time: 04/15/2022 5:08 PM Age: 71 years old Clinical indication: Injury or trauma; Fall; Blunt trauma (contusions or hematomas); Left; Hip; Injury date: 04/13/2022; Additional info: Fall/trauma; One view pelvis too please TECHNIQUE: Imaging protocol: Radiologic exam of the Left hip. Views: 2 or 3 views hip with pelvis when performed. COMPARISON: No relevant prior studies available. FINDINGS: Bones/joints: Unremarkable. No acute fracture. Soft tissues: Unremarkable. XR/XR hip LT 2-3V wo/w pel* [id number] IMPRESSION: No acute findings.
--- NOTE | 2022-04-15 17:25 | W.ED.EXTPRO ---
HPI - Extremity Problem General: Chief complaint: Extremity Injury, Lower Stated complaint: Fall, left hip pain Time Seen by Provider: 04/15/22 17:24 History of Present Illness: 71-year-old male patient comes in today for complaints of injury to the left thigh that occurred approximately 3 days ago. Patient was concerned there may be a fracture or a serious bruise to the leg. Patient has been able to ambulate without difficulty. Patient reports that the pain is worse when he first gets up on it but then after moving around it improves. Patient does use warfarin, carvedilol, olanzapine, atorvastatin, and aspirin. Patient has a history of hypertension, CVA, mood disorder. Associated symptoms: Deny chest pain or fever(s) Review of Systems Const: Denies: fever(s) Card: Denies: chest pain Resp: Denies: dyspnea [facility] ED PFSH: Medical History (Updated 04/15/22 @ 17:35 by BLESSING VieraP) Acute kidney injury CVA (cerebral vascular accident) In July he was at [place] status post embolectomy as per the family because posterior circulation Delusional disorder Hepatic insufficiency Hypothermia Rhabdomyolysis Family History (Updated 01/01/22 @ 17:24 by Grant Fink MD) Other Stroke Social History (Updated 01/01/22 @ 17:24 by Grant Fink MD) Smoking and tobacco status: former smoker Alcohol intake: current Alcohol intake frequency: holidays/special occasions only Alcohol type: beer Lives independently: Yes Housing: House Physical Exam Const: COMMON NORMALS: alert Eye: COMMON NORMALS: EOMs intact bilaterally Neck/C-Spine: COMMON NORMALS: full ROM Resp: COMMON NORMALS: normal respiratory effort and clear to auscultation bilaterally AUSCULTATION: clear to auscultation bilaterally Cardio: COMMON NORMALS: regular rate and regular rhythm RATE: regular rate RHYTHM: regular rhythm GI: COMMON NORMALS: Soft to palpation PALPATION: Yes Soft to palpation Extremity: LEFT LOWER EXTREMITY: Yes upper leg (Lateral swelling to the mid upper leg) Left upper leg: Yes inspection and Yes palpation Neuro: SENSORIUM/ORIENTATION: Yes alert Skin: COMMON NORMALS: turgor normal GENERAL SKIN EXAM: turgor normal Course Vital Signs: Vital signs: Vital Signs Temperature 98.5 F 04/15/22 16:37 Pulse Rate 86 04/15/22 16:37 Respiratory Rate 16 04/15/22 16:37 Blood Pressure 138/88 04/15/22 16:37 Pulse Oximetry 97 04/15/22 16:37 Oxygen Delivery Me thod 04/15/22 16:37 MDM - Extremity (Nontraumatic) Medical Decision Making 71-year-old male patient comes in today for evaluation of injury to the left lower leg. Patient reported that he fell approximately 3 days ago and came in due to persistent pain. On exam there is some swelling to the left upper mid leg. Patient has normal range of motion and is able to bear weight. Differential diagnosis includes but not limited to contusion, fracture, sprain. X-ray was of the hip and pelvis was unremarkable without any visible fracture. Reviewed exam with patient with recommendations for treatment of contusion. Patient and family both reported understanding. Discharge Plan Discharge Patient Disposition: Home Clinical Impression: Contusion of left thigh Qualifiers: Encounter type: initial encounter Qualified Code(s): S70.12XA - Contusion of left thigh, initial encounter Condition: Stable Prescriptions: No Action atorvastatin 80 mg Tablet 80 mg PO QPM carvedilol 6.25 mg Tablet 3.125 mg PO BID aspirin 81 mg Tablet,Delayed Release (Dr/Ec) 81 mg PO DAILY warfarin 2 mg Tablet See Rx Instructions .ROUTE .COMPLEX Rx Instructions: take 3 tabs (6mg) po on tuesday and tuesday and take 2 tabs (4mg) all other days or as directed Vitamin D2 1,250 mcg (50,000 unit) Capsule 50,000 unit PO Q7D Rx Instructions: on sat for 4 weeks olanzapine 7.5 mg tablet 7.5 mg PO DAILY Qty: 60 0RF Discharge Orders: Discharge ED (Routine); Ordered 04/15/22 Ordered By: Brayan Lozano Referrals: Hiral Deng MD [Primary Care Provider] - Discharge Diet: Usual diet Discharge Activity: Increase activity as tolerated Patient Instructions: Contusion in Adults (ED) Activity Restrictions/Additional Instructions: Use ice or heat to the area for comfort. Activity as tolerated. Gentle stretching and range of motion exercises. Use acetaminophen for bad pain. Return to ER for new concerns. Follow-up with primary care as needed. Coding Level of Care Code ED Lace Roller for Francy Beyer
== END 2022-04-15 17:46 | disposition home or self-care (01) ==
PROVIDERS: Emergency Provider Nurse Practitioner Family; PCP Family Medicine
DX: S70.12XA Contusion of left thigh, initial encounter (principal); Z79.01 Long term (current) use of anticoagulants; Z79.82 Long term (current) use of aspirin; Z86.73 Personal history of transient ischemic attack (TIA), and cerebral infarction without residual deficits; Z87.891 Personal history of nicotine dependence; W19.XXXA Unspecified fall, initial encounter
CPT/HCPCS: 73502; 99283

== ENCOUNTER → 2022-07-05 13:12 | Outpatient (BNVA) | payer OTHER, SELFPAY | PROVIDERS: PCP Family Medicine; Visit Provider Internal Medicine | DX: I50.20 Unspecified systolic (congestive) heart failure (principal); I51.3 Intracardiac thrombosis, not elsewhere classified; Z86.73 Personal history of transient ischemic attack (TIA), and cerebral infarction without residual deficits; Z87.891 Personal history of nicotine dependence | CPT/HCPCS: 99204 ==

== ENCOUNTER 2022-07-27 13:56 | Outpatient (CLI) | payer OTHER, SELFPAY ==
--- NOTE | 2022-07-27 13:45 | USCV_ITS ---
Cedric Gaines Age: 71 Gender: M : 1950 Exam Date: 07/27/2022 14:29 Ordering Phys: Cooper Guerrero M.D ([email or web address]) Technologist: Exam Location[place] [facility] [place]ication: ? thrombus BP: 125 / 73 HR: 79 Rhythm: Sinus Technical Quality: Adequate MEASUREMENTS (Male / Female) Normal Values 2D ECHO LV Diastolic Diameter PLAX 6.0 cm 4.2 - 5.9 / 3.9 - 5.3 cm LV Systolic Diameter PLAX 5.6 cm IVS Diastolic Thickness 1.2 cm 0.6 - 1.0 / 0.6 - 0.9 cm IVS Systolic Thickness 1.2 cm LVPW Diastolic Thickness 1.2 cm 0.6 - 1.0 / 0.6 - 0.9 cm LVPW Systolic Thickness 1.3 cm LVOT Diameter 2.1 cm LV Ejection Fraction 2D Teich 15.7 % LV Ejection Fraction MOD 2C 39.2 % LV Ejection Fraction 2C AL 38.1 % LA Diameter 3.4 cm M-MODE Aortic Annulus Diameter 4.2 cm LA Ao Ratio MM 0.9 MV E Point Septal Separation 1.5 cm DOPPLER AV Peak Velocity 130.0 cm/s LVOT Peak Velocity 68.0 cm/s AV Area Cont Eq vti 2.1 cm squared AV Area Cont Eq pk 1.7 cm squared MV E' Velocity 8.0 cm/s TR Peak Velocity 180.3 cm/s TR Peak Gradient 13.0 mmHg TV Peak E Velocity 80.0 cm/s Right Atrial Pressure 3.0 mmHg Pulmonary Artery Systolic Pressu 16.0 mmHg RV Acceleration Time 0.1 s FINDINGS Left Ventricle LV systolic function is moderate to severely reduced with EF of 30 to 35%. Moderate global hypokinesis with severe hypokinesis of apical wall. No LV thrombus is seen Right Ventricle Normal in size and function Right Atrium Not well visualized Left Atrium Dilated Mitral Valve Grossly normal. Mild mitral regurgitation. Aortic Valve Aortic valve is thickened. No significant stenosis or regurgitation. Tricuspid Valve Not well-visualized Pulmonic Valve Not well-visualized Pericardium Normal Aorta Normal size IVC Appears to be normal CONCLUSIONS Technically limited quality echocardiogram. LV systolic function is moderate to severely reduced with EF of 30 to 35%. Moderate global hypokinesis with severe hypokinesis of apical wall is seen. No LV thrombus is seen Mild mitral regurgitation No comparison studies revealed Cooper Guerrero MD (Electronically Signed) Final Date: 07 Aug 2022 13:00 S
== END 2022-07-27 13:57 | disposition home or self-care (01) ==
LOC: RAD 13:59
PROVIDERS: PCP Family Medicine; Visit Provider Internal Medicine
DX: R06.02 Shortness of breath (principal); I34.0 Nonrheumatic mitral (valve) insufficiency; I51.9 Heart disease, unspecified
CPT/HCPCS: 36415; 80048; 83880; C8929

== ENCOUNTER → 2023-01-03 13:48 | Outpatient (BNVA) | payer OTHER, SELFPAY | PROVIDERS: PCP Family Medicine; Visit Provider Internal Medicine | DX: I50.20 Unspecified systolic (congestive) heart failure (principal); I51.3 Intracardiac thrombosis, not elsewhere classified; Z86.73 Personal history of transient ischemic attack (TIA), and cerebral infarction without residual deficits; Z87.891 Personal history of nicotine dependence | CPT/HCPCS: 99214 ==

== ENCOUNTER → 2023-10-04 13:58 | Outpatient (BNVA) | payer OTHER, SELFPAY | PROVIDERS: PCP Family Medicine; Visit Provider Internal Medicine | DX: I50.20 Unspecified systolic (congestive) heart failure (principal); I51.3 Intracardiac thrombosis, not elsewhere classified; Z86.73 Personal history of transient ischemic attack (TIA), and cerebral infarction without residual deficits | CPT/HCPCS: 99214 ==

== ENCOUNTER → 2024-07-02 14:32 | Outpatient (BNVA) | payer OTHER, SELFPAY | PROVIDERS: PCP Family Medicine; Visit Provider Internal Medicine | DX: I50.20 Unspecified systolic (congestive) heart failure (principal); I51.3 Intracardiac thrombosis, not elsewhere classified; Z87.891 Personal history of nicotine dependence | CPT/HCPCS: 99214 ==